=== PATIENT | female | born 1980 | race Caucasian/White ===

== ENCOUNTER 2018-06-14 12:37 | Emergency (ER) | payer OTHER ==
[~2018-06-14] VITALS: Ht 167.6 cm; Wt 56.7 kg
== END 2018-06-14 14:08 | disposition home or self-care (01) ==
LOC: ER 12:37
DX: B34.9 Viral infection, unspecified (principal)

== ENCOUNTER 2019-07-21 12:33 | Outpatient (CLI) | payer OTHER | END 2019-07-21 12:45 | disposition home or self-care (01) | LOC: RAD 12:33 | DX: S93.492A Sprain of other ligament of left ankle, initial encounter (principal); M25.572 Pain in left ankle and joints of left foot; S93.602S Unspecified sprain of left foot, sequela ==